=== PATIENT | male | born 1995 | race African-American/Black ===

== ENCOUNTER 2021-10-28 23:58 | Emergency (ER) | payer MEDICAID, OTHER ==
[~2021-10-28] VITALS: Ht 180.3 cm; Wt 90.0 kg
[2021-10-29 00:48] LABS: HEMATOCRIT 39.2 % (42.0-52.0); MEAN CORPUSCULAR VOLUME 90.3 fL (80.0-94.0); PLATELET 185 x1000/uL (130-400); RED BLOOD CELL COUNT 4.34 mill/uL (4.7-6.1); RED CELL DISTRIBUTION WIDTH 14.7 % (11.6-14.6)
[2021-10-29 00:56] LABS: CHLORIDE 103 mEq/L (98-107)
[2021-10-29 01:06] LABS: CREATINE KINASE 291 IU/L (39-308)
[2021-10-29 03:33] VITALS: BP 145/68
== END 2021-10-29 03:43 | disposition home or self-care (01) ==
LOC: ER 23:58
DX: R56.9 Unspecified convulsions (principal); Z86.73 Personal history of transient ischemic attack (TIA), and cerebral infarction without residual deficits; Z98.890 Other specified postprocedural states
CPT/HCPCS: 36415; 80053; 82550; 82962; 83605; 85027; 99283

== ENCOUNTER 2024-11-10 17:11 | Emergency (ER) | payer OTHER ==
[~2024-11-10] VITALS: Ht 172.7 cm; Wt 75.0 kg
[2024-11-10 17:17] VITALS: BP 147/82; PULSE 110; RESP 16; TEMP 36.6; O2SAT 100
[2024-11-10] MEDS: TETANUS, DIPHTHERIA, PERTUSSIS VAC/PF 0.5ML (>10YR OLD) IM ONE (20:50)
[2024-11-10] MEDS: LIDOCAINE HCL 1% 20ML VIAL INFIL ONE (20:52)
== END 2024-11-10 21:31 ==
LOC: ER 17:11
DX: S01.01XA Laceration without foreign body of scalp, initial encounter (principal); S01.411A Laceration without foreign body of right cheek and temporomandibular area, initial encounter; S01.81XA Laceration without foreign body of other part of head, initial encounter; S09.90XA Unspecified injury of head, initial encounter; F20.9 Schizophrenia, unspecified; Z02.89 Encounter for other administrative examinations; X58.XXXA Exposure to other specified factors, initial encounter; Y93.89 Activity, other specified; Y92.89 Other specified places as the place of occurrence of the external cause; Y99.8 Other external cause status
CPT/HCPCS: 99283; Z7610 ×3; 90715

== ENCOUNTER 2024-12-19 13:56 | Emergency (ER) | payer MEDICAID ==
[~2024-12-19] VITALS: Ht 182.9 cm; Wt 77.0 kg
[2024-12-19 14:10] VITALS: O2SAT 97
[2024-12-19 14:57] VITALS: BP 128/80; PULSE 88; RESP 18; TEMP 36.9; O2SAT 97
== END 2024-12-19 14:58 | disposition home or self-care (01) ==
LOC: ER 13:56
DX: F20.9 Schizophrenia, unspecified (principal); F41.9 Anxiety disorder, unspecified; Z76.0 Encounter for issue of repeat prescription; Z20.822 Contact with and (suspected) exposure to COVID-19
CPT/HCPCS: 99283